=== PATIENT | male | born 1950 | race Caucasian/White ===

== ENCOUNTER 2025-01-31 10:11 | Emergency (ER) | payer MEDICARE ==
[2025-01-31] MEDS: Take Home: Doxycycline 100 MG Cap, 4 Cap Pack PO ONE (10:40)
== END 2025-01-31 10:45 | disposition home or self-care (01) ==
LOC: DL.ED 10:11
DX: S40.862A Insect bite (nonvenomous) of left upper arm, initial encounter (principal); W57.XXXA Bitten or stung by nonvenomous insect and other nonvenomous arthropods, initial encounter
CPT/HCPCS: 99282; A9270-GY